=== PATIENT | male | born 2000 | race African-American/Black ===

== ENCOUNTER 2021-06-16 05:31 | Emergency (ER) | payer MEDICAID ==
[~2021-06-16] VITALS: Ht 177.8 cm; Wt 86.9 kg
[2021-06-16 05:36] VITALS: BP 152/85
[2021-06-16] MEDS ORDERED: IBUP-2029 MT (05:52)
[2021-06-16] MEDS ORDERED: AMOX-494 MT (05:52)
== END 2021-06-16 06:12 | disposition home or self-care (01) ==
LOC: ER 05:31
DX: K05.30 Chronic periodontitis, unspecified (principal)
CPT/HCPCS: 99283; A4315